=== PATIENT | male | born 1960 | race Asian ===

== ENCOUNTER 2016-10-09 08:00 | Emergency (ER) | payer OTHER ==
[~2016-10-09] VITALS: Ht 167.6 cm; Wt 75.0 kg
[~2016-10-09 08:00] MED LIST: ACET325T33 PO; AMO500 PO; D-ME118S6 PO; IBUP800T25 PO; [UNRECOGNIZED DRUG - REMARK]
[2016-10-09 08:10] VITALS: Ht 167.6 cm; Wt 75.0 kg
[2016-10-09] MEDS ORDERED: morphine 4 MG/ML VIAL IV STA (08:34)
[2016-10-09] MEDS ORDERED: SOD CHLORIDE 0.9% 1,000 ML IV STA (08:34)
[2016-10-09] MEDS ORDERED: ONDANSETRON 4 MG INJ IV STA (08:34)
--- NOTE | 2016-10-09 08:34 | ERD ---
ER Documentation Chief Complaint Date/Time DATE: 10/09/16 TIME: 08:33 Chief Complaint epigastric pain started last night denies n/v diarrhea HPI 56-year-old male, diabetic, hypertensive ambulatory to the ED complaining acute onset of unprovoked, severe, sharp, nonradiating epigastric abdominal pain that started yesterday evening and prevented him from sleeping throughout the night. No nausea, vomiting, diarrhea or constipation. No ill contacts, spoiled food exposure or recent travel. No chest pain or palpitations. Denies shortness of breath or cough. No headache or neck pain. No dysuria, polyuria, hematuria or flank pain. No relieving or exacerbating factors. No skin rash. No fevers or chills. ROS All systems reviewed and are negative except as per history of present illness. Medications Home Meds Active Scripts Dextromethorphan Hb-Promethazine Hcl (Promethazine DM Syrup) 180 Ml Syrup, 5 ML PO Q6H Y for COUGH, #4 OZ Prov:ISAURO PETTY PA-C 08/23/15 Acetaminophen* (Tylenol*) 325 Mg Tablet, 2 TAB PO Q8 Y for PAIN AND OR ELEVATED TEMP, #20 TAB Prov:ISAURO PETTY PA-C 08/23/15 Ibuprofen* (Motrin*) 800 Mg Tab, 800 MG PO Q6, #30 TAB Prov:ISAURO PETTY PA-C 08/23/15 Amoxicillin* (Amoxicillin*) 500 Mg Cap, 500 MG PO TID for 10 Days, CAP Prov:RONN OSCAR 08/21/15 Reported Medications [Unk Htn , Dm Meds ] No Conflict Check 04/11/13 Allergies Allergies: Coded Allergies: No Known Drug Allergies (Verified Allergy, 04/11/13) PMhx/Soc Reviewed in chart. As per HPI History of Surgery: No Anesthesia Reaction: No Hx Neurological Disorder: No Hx Respiratory Disorders: No Hx Cardiac Disorders: Yes (HTN/HIGH CHOLESTEROL) Hx Psychiatric Problems: No Hx Miscellaneous Medical Probl: Yes (DM ) Hx Alcohol Use: No Hx Substance Use: No Hx Tobacco Use: No FmHx Brother: Diabetes, ND and CVA. Father diabetes and ND. Sr. diabetes, ND the age of 60 and subarachnoid hemorrhage. Mother: Diabetes. Physical Exam Vitals Vital Signs Date Time Temp Pulse Resp B/P Pulse Ox O2 Delivery O2 Flow Rate FiO2 10/09/16 08:10 97.5 68 18 175/83 98 Physical Exam Const: Alert, moderate distress due to pain. Head: Atraumatic Eyes: Normal Conjunctiva ENT: Normal External Ears, Nose and Mouth. Neck: Full range of motion..~ No meningismus. Resp: Clear to auscultation bilaterally Cardio: Regular rate and rhythm, no murmurs Abd: Soft, moderate epigastric tenderness but no rebound or guarding. No right or left lower quadrant tenderness. No right upper quadrant tenderness or Avila sign. No masses or abnormal pulsations. Skin: No petechiae or rashes Back: No midline or flank tenderness Ext: No cyanosis, or edema. Pulses 4+ in all extremities. Neur: Awake and alert Psych: Normal Mood and Affect Result Diagram: 10/09/16 0845 10/09/16 0845 Results 24 hrs Laboratory Tests Test 10/09/16 08:42 10/09/16 08:45 10/09/16 10:05 10/09/16 10:10 Bedside Glucose 143mg/dL White Blood Count 3.210^3/ul Red Blood Count 5.2510^6/ul Hemoglobin 17.2g/dl Hematocrit 48.9% Mean Corpuscular Volume 93.1fl Mean Corpuscular Hemoglobin 32.8pg Mean Corpuscular Hemoglobin Concent 35.2g/dl Red Cell Distribution Width 11.9% Platelet Count 56847^3/UL Mean Platelet Volume 8.6fl Neutrophils % 34.0% Lymphocytes % 50.0% Monocytes % 10.7% Eosinophils % 4.4% Basophils % 0.9% Nucleated Red Blood Cells % 0.0/100WBC Neutrophils # 1.110^3/ul Lymphocytes # 1.610^3/ul Monocytes # 0.310^3/ul Eosinophils # 0.110^3/ul Basophils # 0.010^3/ul Nucleated Red Blood Cells # 0.010^3/ul Sodium Level 137mmol/L Potassium Level 3.8mmol/L Chloride Level 103mmol/L Carbon Dioxide Level 27mmol/L Anion Gap 11 Blood Urea Nitrogen 16mg/dl Creatinine 0.75mg/dl Glucose Level 160mg/dl Calcium Level 9.3mg/dl Total Bilirubin 0.4mg/dl Direct Bilirubin 0.00mg/dl Indirect Bilirubin 0.4mg/dl Aspartate Amino Transf (AST/SGOT) 29IU/L Alanine Aminotransferase (ALT/SGPT) 36IU/L Alkaline Phosphatase 77IU/L Troponin I 0.017ng/ml Total Protein 7.7g/dl Albumin 4.6g/dl Globulin 3.10g/dl Albumin/Globulin Ratio 1.48 Lipase 67U/L Urine Color YELLOW Urine Clarity CLEAR Urine pH 5.5 Urine Specific [place] 1.015 Urine Ketones NEGATIVE Urine Nitrite NEGATIVE Urine Bilirubin NEGATIVE Urine Urobilinogen 0.2 E.U./dL Urine Leukocyte Esterase NEGATIVE Urine Hemoglobin NEGATIVE Urine Glucose >=1000% Urine Total Protein NEGATIVE Bedside Urine pH (LAB) 6.0 Bedside Urine Protein (LAB) Negative Bedside Urine Glucose (UA) 0.50% Bedside Urine Ketones (LAB) Negative Bedside Urine Blood Negative Bedside Urine Nitrite (LAB) Negative Bedside Urine Leukocyte Esterase (L Negative Current Medications Medications (Trade) Dose Ordered Sig/Alexandru Route PRN Reason Start Time Stop Time Status Last Admin Dose Admin Sodium Chloride (NS) 1,000 ml @ 1,000 mls/hr Q1H STAT IV 10/09/16 08:34 10/09/16 09:33 DC 10/09/16 09:15 Morphine Sulfate (morphine) 4 mg ONCE STAT IV 10/09/16 08:34 10/09/16 08:37 DC 10/09/16 09:16 Ondansetron HCl (Zofran Inj) 4 mg ONCE STAT IV 10/09/16 08:34 10/09/16 08:37 DC 10/09/16 09:15 Pantoprazole (Protonix Iv) 40 mg ONCE ONCE IV 10/09/16 09:00 10/09/16 09:01 DC 10/09/16 09:16 EKG: TIME: 09:18. Sinus bradycardia. Ventricular rate 59. Normal MA and QRS. Q waves in leads V1 and V2. No acute ST segment elevation or depression. No axis deviation or ectopy. EP Interpretation: Abnormal EKG. IMAGING: Ordering MD: ESSENCE MERCADO MD Location: E/R Room/Bed: PROCEDURE: US Abdomen. CLINICAL INDICATION: abdominal pain TECHNIQUE: Multiple real-time images were acquired of the patient's right upper quadrant abdomen and retroperitoneum utilizing a high resolution transducer. COMPARISON: 11/26/14 FINDINGS: The liver demonstrates increased echogenicity. The liver is normal in size and no focal solid lesions are seen. The liver measures 13.8 cm in length. The portal vein is patent with normal direction of flow. No intrahepatic biliary dilatation is seen. No gallstones are identified within the gallbladder. There is no pericholecystic fluid or gallbladder wall thickening. The common bile duct measures 6 mm in maximal dimension. The visualized portions of the pancreas are unremarkable. The tail of the pancreas is not seen. No free fluid is identified. The right kidney is normal in size, and demonstrate normal echogenicity and cortical thickness. The right kidney measures 10.6 cm in long dimension. There is no evidence of hydronephrosis. There are no kidney stones. RPTAT: AA IMPRESSION: Diffuse fatty infiltration of the liver. No gallstones are identified within the gallbladder. 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 ED COURSE: Normal saline 1 L. Warfarin 4 mg/Zofran 4 mg IV. Protonix 40 mg IV. REEXAMINATION/REEVALUATION: Time: 11:00. Doing well. Abdomen soft nontender. Tolerating PO's. Asymptomatic [employer]-year-old male, diabetic, hypertensive ambulatory to the ED complaining acute onset of unprovoked, severe, sharp, nonradiating epigastric abdominal pain that started yesterday evening and prevented him from sleeping throughout the night. Abdominal exam is benign without rebound, guarding or signs of peritonitis. No signs of appendicitis, diverticulitis, bowel obstruction or ischemic colitis. No masses or signs of abdominal aortic aneurysm. An occult malignancy is considered. Possible hiatal hernia. Right upper quadrant ultrasound is negative for cholelithiasis or cholecystitis. No elevated lipase or signs of pancreatitis. No ischemic EKG changes or elevated troponin and a cardiac etiology is unlikely. Pain likely secondary to gastritis/ GERD versus ulcer disease. Stable for discharge with precautionary instructions , proton pump inhibitors and urgent outpatient follow-up as counseled. Patient and understands that the etiology of his symptoms are not established and need to return to the ED if symptoms recur or worsen and mandatory outpatient follow-up is counseled. Counseled patient and family regarding diagnostic workup, diagnosis and need for followup. Understands to return to ED if symptoms recur, worsen or any other concerns. Departure Diagnosis: Primary Impression: Abdominal pain, acute, epigastric Additional Impressions: Abdominal pain of unknown etiology Acute gastritis without bleeding Gastritis type: unspecified gastritis Qualified Code: K29.00 - Acute gastritis without hemorrhage, unspecified gastritis type Condition: Stable Patient Instructions: Abdominal Pain, Unkown Cause, (Male), Gastritis Vs. Ulcer ESSENCE MERCADO MD Oct 09, 2016 08:34
[2016-10-09 08:55] LABS: ADD SCAN DIFF NO
[2016-10-09 08:58] LABS: BASOPHILS % 0.9 % (0.0-2.0); EOSINOPHILS # 0.1 10^3/ul (0.0-0.5); EOSINOPHILS % 4.4 % (0.0-7.0); HEMATOCRIT 48.9 % (42.0-52.0); HEMOGLOBIN 17.2 g/dl (14.0-18.0); LYMPHOCYTES # 1.6 10^3/ul (0.8-2.9); MEAN CORPUSCULAR HEMOGLOBIN 32.8 pg (29.0-33.0); MEAN CORPUSCULAR HGB CONC 35.2 g/dl (32.0-37.0); MEAN CORPUSCULAR VOLUME 93.1 fl (82.0-101.0); MEAN PLATELET VOLUME 8.6 fl (7.4-10.4); MONOCYTE # 0.3 10^3/ul (0.3-0.9); MONOCYTES % 10.7 % (0.0-11.0); NEUTROPHIL # 1.1 10^3/ul (1.6-7.5); PLATELET COUNT 265 10^3/UL (140-415); RED BLOOD COUNT 5.25 10^6/ul (4.70-6.10); RED CELL DISTRIBUTION WIDTH 11.9 % (11.5-14.5); WHITE BLOOD COUNT 3.2 10^3/ul (4.8-10.8)
[2016-10-09] MEDS ORDERED: PANTOPRAZOLE 40 MG INJ IV ONE (09:00)
[2016-10-09 09:13] LABS: ALBUMIN 4.6 g/dl (3.3-4.9); POTASSIUM 3.8 mmol/L (3.5-5.1)
[2016-10-09 09:15] LABS: CREATININE 0.75 mg/dl (0.61-1.24)
[2016-10-09 09:16] LABS: ALBUMIN/GLOBULIN RATIO 1.48; BILIRUBIN,INDIRECT 0.4 mg/dl (0-1.1); BILIRUBIN,TOTAL 0.4 mg/dl (0.2-1.3); CALCIUM 9.3 mg/dl (8.4-10.2); TOTAL PROTEIN 7.7 g/dl (6.1-8.1)
--- NOTE | 2016-10-09 09:24 | RADRPT ---
PROCEDURE: US Abdomen. CLINICAL INDICATION: abdominal pain TECHNIQUE: Multiple real-time images were acquired of the patient's right upper quadrant abdomen a nd retroperitoneum utilizing a high resolution transducer. COMPARISON: 11/26/14 FINDINGS: The liver demonstrates increased echogenicity. The liver is normal in size and no focal solid lesio ns are seen. The liver measures 13.8 cm in length. The portal vein is patent with normal direction o f flow. No intrahepatic biliary dilatation is seen. No gallstones are identified within the gallbladder. There is no pericholecystic fluid or gallbladd er wall thickening. The common bile duct measures 6 mm in maximal dimension. The visualized portions of the pancreas are unremarkable. The tail of the pancreas is not seen. No free fluid is identified. The right kidney is normal in size, and demonstrate normal echogenicity and cortical thickness. The right kidney measures 10.6 cm in long dimension. There is no evidence of hydronephrosis. There are no kidney stones. RPTAT: AA IMPRESSION: Diffuse fatty infiltration of the liver. No gallstones are identified within the gallbladder. .Jass Thompson MD, MD Date Time Electronically viewed and signed by .Jass Thompson MD, MD on 10/09/2016 09:23 .S/
[2016-10-09 09:27] LABS: TROPONIN-I 0.017 ng/ml (0.00-0.12)
[2016-10-09 10:11] LABS: URINE BLOOD (Dip) POC Negative (NEGATIVE)
[2016-10-09 10:32] LABS: ADD UMIC NO; URINE BILIRUBIN (Dip) NEGATIVE (NEGATIVE); URINE BLOOD (Dip) NEGATIVE (NEGATIVE); URINE COLOR YELLOW (YELLOW); URINE GLUCOSE (Dip) >=1000 % (NEGATIVE); URINE KETONES (Dip) NEGATIVE (NEGATIVE); URINE LEUKOCYTE ESTERASE (Dip) NEGATIVE (NEGATIVE); URINE NITRITE (Dip) NEGATIVE (NEGATIVE); URINE TOTAL PROTEIN (Dip) NEGATIVE (NEGATIVE); URINE UROBILINOGEN (Dip) 0.2 E.U./dL (0.1-1.0)
[2016-10-09] MEDS ORDERED: PANT40TA3 PO (11:19)
[2016-10-09 11:45] VITALS: BP 152/78; PULSE 68; RESP 18; TEMP 98.1
== END 2016-10-09 11:45 | disposition home or self-care (01) ==
LOC: E/R 08:00
DX: R10.13 Epigastric pain (principal); K29.00 Acute gastritis without bleeding; I10 Essential (primary) hypertension; E11.9 Type 2 diabetes mellitus without complications
CPT/HCPCS: 36415; 76705; 80053; 81003; 82962; 83690; 84484; 85025; 93005; 96374; 96375; 99285; C9113; J2270; J2405; J7030